=== PATIENT | female | born 1980 | race Two or more races ===

== ENCOUNTER 2021-03-24 15:35 | Outpatient (CLI) | payer BC | END 2021-03-24 15:36 | disposition home or self-care (01) | LOC: CSHMAMMO 15:35 | PROVIDERS: ATTEND Family Medicine | DX: Z12.31 Encounter for screening mammogram for malignant neoplasm of breast (principal) | CPT/HCPCS: 77063; 77067 ==

== ENCOUNTER 2022-04-12 15:21 | Outpatient (CLI) | payer BC | END 2022-04-12 15:22 | disposition home or self-care (01) | LOC: CSHMAMMO 15:21 | PROVIDERS: ATTEND Family Medicine | DX: Z12.31 Encounter for screening mammogram for malignant neoplasm of breast (principal) | CPT/HCPCS: 77063; 77067 ==